=== PATIENT | female | born 1940 | race Caucasian/White ===

== ENCOUNTER 2017-10-05 19:11 | Inpatient (IN) ==
[2017-10-05] MEDS ORDERED: Naloxone 0.4 MG/ML INJ IVP PRN (23:37)
[2017-10-05] MEDS ORDERED: Ipratropium/Albuterol Neb 3 ML IH PRN (23:42)
[2017-10-05] MEDS ORDERED: predniSONE 20 MG TABLET PO SCH (23:45)
[2017-10-06] MEDS: Acetaminophen 325 MG TABLET PO PRN (00:29)
[2017-10-06] MEDS: Ipratropium/Albuterol Neb 3 ML IH SCH ×4 (03:27→21:14)
--- NOTE | 2017-10-06 03:30 | Internal Med History&Physical ---
Date of Encounter: 10/05/17 Time of Encounter: 22:00 Assessment and Plan (1) HTN (hypertension) Current visit: Yes Status: Acute continue home medications after meds verification. Now BP is not high. Qualifiers: Hypertension type: essential hypertension Qualified Code(s): I10 - Essential (primary) hypertension (2) Acute exacerbation of chronic obstructive airways disease Current visit: No Status: Acute Pt has wheezes b/l, increased SOB, consider COPD exacerbation. - Place pt on Abx, steroid and bronchodilators - Oxygen supportive treatment. - Closely monitor pt. - Bipap if necessary. (3) Pneumonia Current visit: No Status: Acute Pt's CXR shows possible pneumonia. Pt has leukocytosis and SOB. Pt has sputum culture positive for MRSA previously (about 1 year ago). - Will cover pt with vanco for MRSA and levaquin for strep pneumoccocos and atypical. - F/U blood and sputum culture. Qualifiers: Pneumonia type: due to Pneumococcus Laterality: right Lung location: unspecified part of lung Qualified Code(s): J13 - Pneumonia due to Streptococcus pneumoniae (4) DVT prophylaxis Current visit: No Status: Acute heparin [place] Internal Medicine - H&P: HPI Chief complaint: SOB Admitted From: Home Plans for Post Hospital Care: Home History of present illness: Ms. Kurtz is a 76 year old female with Hx of COPD and HTN sent to [facility] by friend for increased SOB. Pt was diagnosed Flu on 09/26/17 and just finished 5 day course of tamiflu. She was found SOB and desaturation. Needs more Oxygen. Pt denies fever but feels chill. She has no cough. Pt denies chest pain, abd pain, nausea or vomiting. Pt has no diarrhea or urination symptoms. Pt denies recent hospitalization. In ER, CXR shows pneumonia. Pt is admitted for pneumonia and COPD exacerbation. Past Med Surg Social Fam HX - Past Medical History Medical history: asthma, COPD, dementia, GERD, hyperlipidemia, hypertension, TIA Psychiatric history: no psych history - Past Surgical History Surgical History: knee replacement - Social History Smoking Status: Former smoker Smokeless Tobacco Status: No Alcohol use: none Drug use: none - Family History Father Living Status: Hx Family Cardiac Disorders: Yes (enlarged heart) Mother Living Status: Internal Medicine - H&P: Meds Aspirin [Adult Low Dose Aspirin EC] 81 mg PO DAILY 01/07/16 [History] Potassium Chloride [K-Tab ER] 20 meq PO BID 01/07/16 [History] Pravastatin Sodium 10 mg PO DAILY 01/07/16 [History] Gabapentin [Neurontin] 300 mg PO BID 08/10/16 [History] Ranitidine HCl [Zantac] 150 mg PO BID 08/10/16 [History] Escitalopram [Lexapro] 20 mg PO DAILY 07/27/17 [History] Loratadine [Allergy Relief] 10 mg PO DAILY 07/27/17 [History] Losartan Potassium [Cozaar] 25 mg PO DAILY 07/27/17 [History] Omeprazole [PriLOSEC] 20 mg PO DAILY 07/27/17 [History] Quetiapine Fumarate [Seroquel] 50 mg PO BID 07/27/17 [History] Furosemide [Lasix] 40 mg PO HS 08/02/17 [History] Furosemide [Lasix] 80 mg PO 0900 08/02/17 [History] Gabapentin [Neurontin] 600 mg PO HS 08/02/17 [History] Ipratropium/Albuterol Sulfate [Combivent Respimat Inhal [place]] 4 gm IH QID PRN 08/02/17 [History] Metoprolol [Lopressor] 12.5 mg PO BID 08/02/17 [History] traZODone [TraZODone] 100 mg PO HS 08/02/17 [History] Buspirone HCl [Buspar] 15 mg PO BID 10/05/17 [History] Cholecalciferol (Vitamin D3) [Vitamin D] 50,000 unit PO QWEEK 10/05/17 [History] Cyanocobalamin (Vitamin B-12) [Vitamin B-12] 1,000 mcg PO DAILY 10/05/17 [ History] Doxycycline 100 mg PO BID 10/05/17 [History] Fluticasone Propionate [Flovent Diskus] 50 mcg IH DAILY 10/05/17 [History] Fluticasone/Vilanterol [Breo Ellipta 100-25 Mcg INH] 1 each IH DAILY 10/05/17 [ History] Ipratropium/Albuterol Neb [Duoneb] 3 ml IH Q6HR 10/05/17 [History] Melatonin/Pyridoxine HCl (B6) [Melatonin 3 mg Tablet] 1 each PO HS 10/05/17 [ History] Memantine HCl [Namenda Xr] 14 mg PO DAILY 10/05/17 [History] PrednisoLONE [Millipred] 10 mg PO DAILY 10/05/17 [History] 3 Allergy/AdvReac Type Severity Reaction Status Date / Time Banana Allergy See Verified 08/02/17 12:24 Comments epinephrine [From Adrenalin] Allergy Swelling Verified 08/02/17 12:24 of Lip/Tongue/Throat grass pollen Allergy See Verified 08/02/17 12:24 Comments Penicillins Allergy Swelling Verified 08/02/17 12:24 of Lip/Tongue/Throat All Systems PM: A 10-system review of systems was performed and is negative for pertinent findings except as documented above in the HPI. - Constitutional Vitals: Temp Pulse Resp BP Pulse Ox 99.3 F 97 21 105/69 92 10/05/17 22:10 10/05/17 22:10 10/05/17 22:10 10/05/17 22:10 10/06/17 01:10 General appearance: Present: A&O X 3, morbidly obese, no acute distress, answers questions appropriately - Head Head exam: Present: atraumatic, normocephalic - Eye Eye exam: Present: PERRL, conjuntiva pink, sclera anicteric Pupils: Present: PERRL - Neck Neck exam general surgery: Present: supple, trachea midline. Absent: lymphadenopathy - Respiratory Respiratory exam: Present: CTAB. Absent: accessory muscle use, rales, rhonchi, wheezes - Cardiovascular Cardiovascular exam: Present: RRR, +S1, +S2. Absent: diastolic murmur, gallop, rubs, systolic murmur - GI/Abdominal GI/Abdominal exam: Present: normal bowel sounds, soft, no peritoneal signs. Absent: distended, tenderness - Extremities Exam Extremities exam: Present: warm, radial pulses palpable and symmetrical. Absent : calf tenderness, cyanotic, pedal edema - Neurological Exam Neurological exam: Present: CN II-XII intact, oriented X3, no focal deficits. Absent: pronater drift, facial droop, speech deficit - Skin Skin exam: Present: dry, intact
[2017-10-06] MEDS ORDERED: Vancomycin 1,750 MG in D5% in Water 500 ML IVPB SCH (04:00)
[2017-10-06] MEDS: *HR* Heparin 5,000 UNIT/ML VIAL SQ SCH ×2 (05:20→17:12)
[2017-10-06] MEDS ORDERED: Haloperidol Lactate 5 MG/ML VIAL IVP ONE (06:09)
[2017-10-06] MEDS: Ondansetron 4 MG/2 ML VIAL IVP PRN (06:19)
[2017-10-06] MEDS ORDERED: Saline Nasal Spray 44 ML BOTTLE NS PRN (06:23)
[2017-10-06] MEDS: Fluticasone Propionate Nasal 50 MCG/SPRAY BOTTLE NS SCH (06:39)
[2017-10-06 08:40] LABS: BUN/Creatinine Ratio 15 (6-26); Blood Urea Nitrogen 10 mg/dL (8-23); Calcium 8.2 mg/dL (8.6-10.3); Carbon Dioxide 40 mEq/L (23-29); Chloride 95 mEq/L (98-107); Glucose 163 mg/dL (70-105); Magnesium 1.9 mg/dL (1.6-2.6); Osmolality,Calculated 291 (280-300); Potassium 3.7 mEq/L (3.5-5.1); Sodium 139 mEq/L (136-145); eGFR For African Americans > 60 (> 60); eGFR For Non-African Americans > 60 (> 60)
[2017-10-06 08:42] LABS: Basophils % 0.2 %; Eosinophils % 0.1 %; Hematocrit 35.6 % (35.3-44.9); Hemoglobin 10.6 g/dL (11.5-15.4); Immature Granulocytes % 0.9 % (0-4); Lymphocytes # 0.5 K/mcL (0.6-4.6); Lymphocytes % 4.2 %; Mean Corpuscular HGB Conc 29.8 g/dL (31.6-35.5); Mean Corpuscular Hemoglobin 27.8 pg (28.0-33.3); Mean Corpuscular Volume 93.4 fL (83.0-100.0); Mean Platelet Volume 9.7 fL (9.4-12.4); Monocytes # 0.3 K/mcL (0.0-1.3); Monocytes % 2.8 %; Neutrophils # 10.8 K/mcL (1.6-8.9); Platelet Count 264 K/mcL (140-400); Red Blood Count 3.81 M/mcL (3.82-4.97); Red Cell Distribution Width 14.1 % (11.5-14.5); Segmented Neutrophils % 91.8 %
[2017-10-06] MEDS: Levofloxacin 750 MG/150 ML 750 MG/150 ML BAG IVPB SCH (09:20)
[2017-10-06] MEDS: predniSONE 20 MG TABLET PO SCH (09:20)
[2017-10-06 10:46] LABS: ABG Base Excess 11 mEq/L (-2 to 3); ABG HCO3 39 mEq/L (21-27); ABG Oxygen Saturation 97 % (95-98); ABG PCO2 69 mmHg (35-45); ABG PH 7.36 pH Units (7.32-7.45); ABG PO2 96 mmHg (85-104); ABG TCO2 42 mEq/L (20-26)
--- NOTE | 2017-10-06 15:59 | Internal Med Progress Note ---
Date of Encounter: 10/06/17 Time of Encounter: 15:57 - Assessment and plan (1) Acute and chronic respiratory failure with hypoxia Current Visit: No Status: Acute Assessment and plan: Patient presented to [facility] ED from senior care for dyspnea and confusion. Several days ago she was at the senior care and she finished Tamiflu for influenza, positive for Flu B. She has also been having some problems with cough and low oxygen. Patient's that some underlying dementia and confusion but apparently the confusion is getting worse according to the nursing staff she is not complaining of any pain. Chest x-ray in [place] showed right retrocardiac opacity, in this setting likely PNA. Has COPD exacerbation as well. Not likely heart failure, patient BNP 80s. WBC elevated at 15k. CTA chest done here negative for PE. CTA did show dbilateral lower lobe airspace consolidation, likely reflecting miltifocal pneumonia or aspiration. Also showed consolidation of RML, likely additional pneumonia or chronic right middle lobe collapse. Has MRSA in sputum with pneumonia in the past. She refused Bipap this AM. ABG showed normalized pH (was alkolotic in [place]), but CO2 is now 69. She is likely retains CO2 at baseline as her HCO3 is 39 on ABG. Her son notes that at senior care she is on 2-4 L o2 and saturates 90-92% . - Discussed with the POA (son) and the patient about her goals of care. She has refused Bipap today when she clinically warranted it. She is unsure if she would like intubation/CPR in case of respiratory failure. Her son states she has dementia and when she is in illness like this she becomes more confused as she is at this moment. He believes she would be okay with bipap. We discussed that this will need to be addressed in case patient does go back into acute respiratory failure like she did this morning. Currently she is in no acute distress. - Currently full code, patient and POA are looking into if she is okay with intubations or not, she is currently refusing bipap therapy. - Continue Vancomycin, Levaquin. Await urine antigen studies, procalcitonin, sputum cultures. - Duonebs and Prednisone daily - Speech evaluation, evaluate for possible aspiration. - Titrate O2 sats to 90-92% O2. (2) Pneumonia Current Visit: No Status: Acute Assessment and plan: Has history of MRSA pneumonia which was isolated in sputum culture at that time. Chest x-ray Qualifiers: Pneumonia type: due to Pneumococcus Laterality: right Lung location: unspecified part of lung Qualified Code(s): J13 - Pneumonia due to Streptococcus pneumoniae (3) Acute exacerbation of chronic obstructive airways disease Current Visit: No Status: Acute (4) Dementia Current Visit: Yes Status: Acute Assessment and plan: As reported by her son, and does appear confused at baseline. She is unsure why she is admitted even though she has episodes of respiratory distress. GLORIA is son and medical decision making has been taking place with him on her goals of care. Qualifiers: Dementia type: unspecified type Dementia behavioral disturbance: without behavioral disturbance Qualified Code(s): F03.90 - Unspecified dementia without behavioral disturbance (5) Heart failure with preserved left ventricular function (HFpEF) Current Visit: Yes Status: Acute Assessment and plan: Not in acute exacerbation (6) COPD (chronic obstructive pulmonary disease) with emphysema Current Visit: No Status: Acute Qualifiers: Emphysema type: unilateral Qualified Code(s): J43.0 - Unilateral pulmonary emphysema [MacLeod's syndrome] (7) HTN (hypertension) Current Visit: Yes Status: Acute Qualifiers: Hypertension type: essential hypertension Qualified Code(s): I10 - Essential (primary) hypertension - Subjective Interval history: Patient admitted overnight transfer from [facility] ED for acute on chonric respiratory failure. She's on 2-4L O2 at senior care. She has history of dementia and patient was confused this morning. She had episodes of dyspnea requiring oxygen to go to 7L NC. She was still labored in breathing. Eventually was able to wean oxygen to 4 L which she can be at senior care at times. She is currently feeling better after re-evaluation at 14:00. - Constitutional Vitals: Temp Pulse Resp BP Pulse Ox 98.6 F 94 20 128/81 88 10/06/17 11:02 10/06/17 11:02 10/06/17 11:02 10/06/17 11:02 10/06/17 11:02 General appearance: Present: A&O X 3, morbidly obese, no acute distress, answers questions appropriately Exam: - Head Head exam: Present: atraumatic, normocephalic - Eye Eye exam: Present: PERRL, conjuntiva pink, sclera anicteric Pupils: Present: PERRL - Neck Neck exam general surgery: Present: supple, trachea midline. Absent: lymphadenopathy - Respiratory Respiratory exam: Present: CTAB. Absent: Note: Initially patient had respiratory distress with labored breathing. Reassessment throughout the AM showed patient with less distress. - Cardiovascular Cardiovascular exam: Present: RRR, +S1, +S2. Absent: diastolic murmur, gallop, rubs, systolic murmur - GI/Abdominal GI/Abdominal exam: Present: normal bowel sounds, soft, no peritoneal signs. Absent: distended, tenderness - Extremities Exam Extremities exam: Present: warm, radial pulses palpable and symmetrical. Absent : calf tenderness, cyanotic, pedal edema - Neurological Exam Neurological exam: Present: CN II-XII intact, oriented X3, no focal deficits. Absent: pronater drift, facial droop, speech deficit - Skin Skin exam: Present: dry, intact Internal Medicine: Result - Labs CBC & Chem 7: 10/06/17 07:17 10/06/17 07:17 Labs: Short CBC 10/06/17 Range/Units 07:17 WBC 11.8 H (4.3-11.1) K/mcL Hgb 10.6 L D (11.5-15.4) g/dL Hct 35.6 (35.3-44.9) % Plt Count 264 (140-400) K/mcL Neutrophils # 10.8 H (1.6-8.9) K/mcL BMP 10/06/17 07:17 Sodium 139 Potassium 3.7 Chloride 95 L Carbon Dioxide 40 H* BUN 10 Creatinine 0.68 Glucose 163 H Calcium 8.2 L - ABG Interpretation ABG results: ABG ABG pH 7.36 pH Units (7.32-7.45) 10/06/17 10:42 ABG pCO2 69 mmHg (35-45) H 10/06/17 10:42 ABG pO2 96 mmHg (85-104) 10/06/17 10:42 ABG O2 Saturation 97 % (95-98) 10/06/17 10:42 - Impressions Impressions Chest CTA 10/06/17 08:45 IMPRESSION: 1. No CT evidence of a pulmonary embolism. 2. Atherosclerotic disease of the thoracic aorta, without acute abnormality. 3. Bilateral lower lobe airspace consolidation, most likely reflecting either multifocal pneumonia or aspiration. 4. Mild partial consolidation right middle lobe, likely representing additional pneumonia or chronic partial right middle lobe collapse. 5. Findings suggestive of chronic pulmonary arterial hypertension. D/ / 10/06/2017 09:24:53 Zackery Paul MD / corona Interpreting Provider: Zackery Paul MD Consult Discharge Plan - Plan Referrals: Colleen Smith, CANDICE [Primary Care Provider] -
[2017-10-07] MEDS ORDERED: Haloperidol Lactate 5 MG/ML VIAL IM ONE (00:29)
[2017-10-07] MEDS: Acetaminophen 325 MG TABLET PO PRN ×3 (00:33→22:37)
[2017-10-07] MEDS: Vancomycin 1,750 MG in D5% in Water 500 ML IVPB SCH (04:00)
[2017-10-07] MEDS: Ipratropium/Albuterol Neb 3 ML IH SCH ×4 (04:14→21:28)
[2017-10-07] MEDS: *HR* Heparin 5,000 UNIT/ML VIAL SQ SCH ×2 (05:14→16:25)
[2017-10-07 06:38] LABS: Basophils % 0.3 %; Eosinophils % 0.3 %; Hematocrit 35.8 % (35.3-44.9); Immature Granulocytes % 1.4 % (0-4); Lymphocytes # 1.2 K/mcL (0.6-4.6); Lymphocytes % 10.3 %; Mean Corpuscular HGB Conc 30.7 g/dL (31.6-35.5); Mean Corpuscular Hemoglobin 28.4 pg (28.0-33.3); Mean Corpuscular Volume 92.5 fL (83.0-100.0); Mean Platelet Volume 9.4 fL (9.4-12.4); Monocytes # 1.1 K/mcL (0.0-1.3); Monocytes % 9.7 %; Neutrophils # 9.1 K/mcL (1.6-8.9); Platelet Count 313 K/mcL (140-400); Red Blood Count 3.87 M/mcL (3.82-4.97); Red Cell Distribution Width 13.9 % (11.5-14.5)
[2017-10-07 08:05] LABS: BUN/Creatinine Ratio 16 (6-26); Blood Urea Nitrogen 12 mg/dL (8-23); Carbon Dioxide 38 mEq/L (23-29); Chloride 95 mEq/L (98-107); Glucose 159 mg/dL (70-105); Osmolality,Calculated 293 (280-300); Potassium 3.2 mEq/L (3.5-5.1); Sodium 140 mEq/L (136-145); eGFR For African Americans > 60 (> 60); eGFR For Non-African Americans > 60 (> 60)
[2017-10-07] MEDS: Levofloxacin 750 MG/150 ML 750 MG/150 ML BAG IVPB SCH (08:27)
[2017-10-07] MEDS: predniSONE 20 MG TABLET PO SCH (08:27)
[2017-10-07] MEDS: Fluticasone Propionate Nasal 50 MCG/SPRAY BOTTLE NS SCH (08:38)
[2017-10-07] MEDS ORDERED: ALPRAZolam 0.25 MG TABLET PO ONE (10:47)
--- NOTE | 2017-10-07 15:37 | Internal Med Progress Note ---
Date of Encounter: 10/07/17 Time of Encounter: 15:35 - Assessment and plan (1) Acute and chronic respiratory failure with hypoxia Current Visit: No Status: Acute Assessment and plan: Patient presented to [facility] ED from long-term for dyspnea and confusion. Several days ago she was at the long-term and she finished Tamiflu for influenza, positive for Flu B. She has also been having some problems with cough and low oxygen. Patient's that some underlying dementia and confusion but apparently the confusion is getting worse according to the nursing staff she is not complaining of any pain. Chest x-ray in [facility] showed right retrocardiac opacity, in this setting likely PNA. Has COPD exacerbation as well. Not likely heart failure, patient BNP 80s. WBC elevated at 15k. CTA chest done here negative for PE. CTA did show bilateral lower lobe airspace consolidation, likely reflecting miltifocal pneumonia or aspiration. Swallow eval 10/07; no signs of aspiration. Has MRSA in sputum with pneumonia in the past. She refused Bipap this AM. ABG showed normalized pH (was alkolotic in [facility]), but CO2 is now 69. She is likely retains CO2 at baseline as her HCO3 is 39 on ABG. Her son notes that at long-term she is on 2-4 L o2 and saturates 90-92%. - Discussed with the POA (son) and the patient about her goals of care. She has refused Bipap today when she clinically warranted it. She is unsure if she would like intubation/CPR in case of respiratory failure. Her son states she has dementia and when she is in illness like this she becomes more confused as she is at this moment. He believes she would be okay with bipap, however patient continues to decline use of bipap. - Currently full code, patient and POA are looking into if she is okay with intubations or not, she is currently refusing bipap therapy. - Continue Vancomycin, Levaquin. Await urine antigen studies, procalcitonin, sputum cultures. - Duonebs and Prednisone daily - Titrate O2 sats to 90-92% O2. (2) Pneumonia Current Visit: No Status: Acute Assessment and plan: Seen on CTA of chest, showing likely multifocal pneumonia. Has history of MRSA pneumonia which was isolated in sputum culture at that time. Qualifiers: Pneumonia type: due to Pneumococcus Laterality: right Lung location: unspecified part of lung Qualified Code(s): J13 - Pneumonia due to Streptococcus pneumoniae (3) Acute exacerbation of chronic obstructive airways disease Current Visit: No Status: Acute (4) Dementia Current Visit: Yes Status: Acute Assessment and plan: As reported by her son, and does appear confused at baseline. She is unsure why she is admitted even though she has episodes of respiratory distress. GLORIA is son and medical decision making has been taking place with him on her goals of care. Qualifiers: Dementia type: unspecified type Dementia behavioral disturbance: without behavioral disturbance Qualified Code(s): F03.90 - Unspecified dementia without behavioral disturbance (5) Heart failure with preserved left ventricular function (HFpEF) Current Visit: Yes Status: Acute Assessment and plan: Not in acute exacerbation (6) COPD (chronic obstructive pulmonary disease) with emphysema Current Visit: No Status: Acute Qualifiers: Emphysema type: unilateral Qualified Code(s): J43.0 - Unilateral pulmonary emphysema [MacLeod's syndrome] (7) HTN (hypertension) Current Visit: Yes Status: Acute Qualifiers: Hypertension type: essential hypertension Qualified Code(s): I10 - Essential (primary) hypertension - Subjective Interval history: Patient admitted as transfer from [facility] ED for acute on chonric respiratory failure. She's on 2-4L O2 at long-term. She has history of dementia and patient was confused this morning. She had episodes of dyspnea requiring oxygen to go to 7L NC. She was still labored in breathing. Eventually was able to wean oxygen to 4 L which she can be at long-term at times. 10/07 patient still requiring 7 L O2, gets dyspneic but cannot remember exactly why she is here. She states she wants to go home. When patient takes her O2 off she instantly desaturates to 80s. - Constitutional Vitals: Temp Pulse Resp BP Pulse Ox 98.7 F 95 18 143/70 90 10/07/17 12:00 10/07/17 13:01 10/07/17 13:01 10/07/17 13:01 10/07/17 13:01 General appearance: Present: A&O X 3, morbidly obese, no acute distress, answers questions appropriately Exam: - Head Head exam: Present: atraumatic, normocephalic - Eye Eye exam: Present: PERRL, conjuntiva pink, sclera anicteric Pupils: Present: PERRL - Neck Neck exam general surgery: Present: supple, trachea midline. Absent: lymphadenopathy - Respiratory Respiratory exam: Present: CTAB. Absent: Note: Air exchange is better on exam today. No w/r/r - Cardiovascular Cardiovascular exam: Present: RRR, +S1, +S2. Absent: diastolic murmur, gallop, rubs, systolic murmur - GI/Abdominal GI/Abdominal exam: Present: normal bowel sounds, soft, no peritoneal signs. Absent: distended, tenderness - Extremities Exam Extremities exam: Present: warm, radial pulses palpable and symmetrical. Absent : calf tenderness, cyanotic, pedal edema - Neurological Exam Neurological exam: Present: CN II-XII intact, oriented X3, no focal deficits. Absent: pronater drift, facial droop, speech deficit - Skin Skin exam: Present: dry, intact Internal Medicine: Result - Labs CBC & Chem 7: 10/07/17 05:40 10/07/17 05:40 Labs: Short CBC 10/07/17 Range/Units 05:40 WBC 11.6 H (4.3-11.1) K/mcL Hgb 11.0 L (11.5-15.4) g/dL Hct 35.8 (35.3-44.9) % Plt Count 313 (140-400) K/mcL Neutrophils # 9.1 H (1.6-8.9) K/mcL BMP 10/07/17 05:40 Sodium 140 Potassium 3.2 L Chloride 95 L Carbon Dioxide 38 H BUN 12 Creatinine 0.74 Glucose 159 H Calcium 9.0 - ABG Interpretation ABG results: ABG ABG pH 7.36 pH Units (7.32-7.45) 10/06/17 10:42 ABG pCO2 69 mmHg (35-45) H 10/06/17 10:42 ABG pO2 96 mmHg (85-104) 10/06/17 10:42 ABG O2 Saturation 97 % (95-98) 10/06/17 10:42 - Impressions Impressions Chest CTA 10/06/17 08:45 IMPRESSION: 1. No CT evidence of a pulmonary embolism. 2. Atherosclerotic disease of the thoracic aorta, without acute abnormality. 3. Bilateral lower lobe airspace consolidation, most likely reflecting either multifocal pneumonia or aspiration. 4. Mild partial consolidation of the right middle lobe, likely representing additional pneumonia or chronic partial right middle lobe collapse. 5. Findings suggestive of chronic pulmonary arterial hypertension. D/ / 10/06/2017 09:24:53 Zackery Paul MD / corona Interpreting Provider: Zackery Paul MD Consult Discharge Plan - Plan Referrals: Colleen Smith, MACHINE SPECIALIST [Primary Care Provider] -
[2017-10-07] MEDS ORDERED: Potassium Chloride Elixir 20 MEQ/15 ML UDC PO ONE (15:38)
[2017-10-07] MEDS: traZODone 50 MG TABLET PO SCH (22:38)
[2017-10-08 03:57] LABS: Basophils % 0.2 %; Eosinophils % 0.1 %; Hematocrit 35.6 % (35.3-44.9); Hemoglobin 10.8 g/dL (11.5-15.4); Immature Platelets 2.9 % (1.1-6.1); Lymphocytes # 1.1 K/mcL (0.6-4.6); Lymphocytes % 11.4 %; Mean Corpuscular HGB Conc 30.3 g/dL (31.6-35.5); Mean Corpuscular Hemoglobin 27.8 pg (28.0-33.3); Mean Corpuscular Volume 91.8 fL (83.0-100.0); Mean Platelet Volume 9.1 fL (9.4-12.4); Monocytes # 1.1 K/mcL (0.0-1.3); Monocytes % 10.9 %; Neutrophils # 7.6 K/mcL (1.6-8.9); Platelet Count 390 K/mcL (140-400); Red Blood Count 3.88 M/mcL (3.82-4.97); Red Cell Distribution Width 13.9 % (11.5-14.5); Segmented Neutrophils % 76.4 %
[2017-10-08] MEDS: Ipratropium/Albuterol Neb 3 ML IH SCH ×4 (04:08→23:14)
[2017-10-08 04:12] LABS: BUN/Creatinine Ratio 15 (6-26); Blood Urea Nitrogen 11 mg/dL (8-23); Calcium 9.1 mg/dL (8.6-10.3); Carbon Dioxide 36 mEq/L (23-29); Chloride 97 mEq/L (98-107); Glucose 108 mg/dL (70-105); Osmolality,Calculated 290 (280-300); Potassium 3.3 mEq/L (3.5-5.1); Sodium 140 mEq/L (136-145); eGFR For African Americans > 60 (> 60); eGFR For Non-African Americans > 60 (> 60)
[2017-10-08] MEDS: *HR* Heparin 5,000 UNIT/ML VIAL SQ SCH ×2 (05:47→17:49)
[2017-10-08] MEDS: Acetaminophen 325 MG TABLET PO PRN (05:47)
[2017-10-08] MEDS: predniSONE 20 MG TABLET PO SCH (09:33)
[2017-10-08] MEDS: Fluticasone Propionate Nasal 50 MCG/SPRAY BOTTLE NS SCH (09:33)
[2017-10-08] MEDS: traZODone 50 MG TABLET PO SCH ×2 (09:33→20:03)
[2017-10-08] MEDS: Levofloxacin 750 MG/150 ML 750 MG/150 ML BAG IVPB SCH (09:33)
--- NOTE | 2017-10-08 15:31 | Internal Med Progress Note ---
Date of Encounter: 10/08/17 Time of Encounter: 15:29 - Assessment and plan (1) Acute and chronic respiratory failure with hypoxia Current Visit: No Status: Acute Assessment and plan: Patient presented to [place] ED from senior living for dyspnea and confusion. Several days ago she was at the senior living and she finished Tamiflu for influenza, positive for Flu B. She has also been having some problems with cough and low oxygen. Patient's that some underlying dementia and confusion but apparently the confusion is getting worse according to the nursing staff she is not complaining of any pain. Chest x-ray in [place] showed right retrocardiac opacity, in this setting likely PNA. Has COPD exacerbation as well. Not likely heart failure, patient BNP 80s. WBC elevated at 15k. CTA chest done here negative for PE. CTA did show bilateral lower lobe airspace consolidation, likely reflecting miltifocal pneumonia or aspiration. Swallow eval 10/07; no signs of aspiration. Has MRSA in sputum with pneumonia in the past. Her son notes that at senior living she is on 2-4 L o2 and saturates 90-92 %. - Discussed with the POA (son) and the patient about her goals of care. She has refused Bipap today when she clinically warranted it. She is unsure if she would like intubation/CPR in case of respiratory failure. Her son states she has dementia and when she is in illness like this she becomes more confused as she is at this moment. He believes she would be okay with bipap, however patient continues to decline use of bipap. - Currently full code, patient and POA are looking into if she is okay with intubations or not, she is currently refusing bipap therapy. - Continue Vancomycin, Levaquin. Await urine antigen studies, procalcitonin, sputum cultures. - Duonebs and Prednisone daily - Titrate O2 sats to 90-92% O2. Switch to nasal cannula to improve patient compliance. (2) Pneumonia Current Visit: No Status: Acute Assessment and plan: Seen on CTA of chest, showing likely multifocal pneumonia. Has history of MRSA pneumonia which was isolated in sputum culture at that time. Continue to monitor patient as she is easily desaturating and goes into dyspneic episodes. Overall she is showing some improvement but she is a high risk patient based on multiple comorbidities. Qualifiers: Pneumonia type: due to Pneumococcus Laterality: right Lung location: unspecified part of lung Qualified Code(s): J13 - Pneumonia due to Streptococcus pneumoniae (3) Acute exacerbation of chronic obstructive airways disease Current Visit: No Status: Acute (4) Dementia Current Visit: Yes Status: Acute Assessment and plan: As reported by her son, and does appear confused at baseline. She is unsure why she is admitted even though she has episodes of respiratory distress. POSera is son and medical decision making has been taking place with him on her goals of care. Qualifiers: Dementia type: unspecified type Dementia behavioral disturbance: without behavioral disturbance Qualified Code(s): F03.90 - Unspecified dementia without behavioral disturbance (5) Heart failure with preserved left ventricular function (HFpEF) Current Visit: Yes Status: Acute Assessment and plan: Not in acute exacerbation (6) COPD (chronic obstructive pulmonary disease) with emphysema Current Visit: No Status: Acute Qualifiers: Emphysema type: unilateral Qualified Code(s): J43.0 - Unilateral pulmonary emphysema [MacLeod's syndrome] (7) HTN (hypertension) Current Visit: Yes Status: Acute Qualifiers: Hypertension type: essential hypertension Qualified Code(s): I10 - Essential (primary) hypertension - Subjective Interval history: Patient admitted as transfer from [place] ED for acute on chonric respiratory failure. She's on 2-4L O2 at senior living. She has history of dementia and patient was confused this morning. She had episodes of dyspnea requiring oxygen to go to 7L NC. She was still labored in breathing. Eventually was able to wean oxygen to 4 L which she can be at senior living at times. 10/07 patient still requiring 7 L O2 (Mask), gets dyspneic but cannot remember exactly why she is here. She states she wants to go home. When patient takes her O2 off she instantly desaturates to 80s. 10/08: Documented on 7 L mask. However nursing reports that she was on 4L earlier. I observed patient eating lunch and she is desaturating to 83%with mask partially off she currently denies CP,SOB, fevers.chills. - Constitutional Vitals: Temp Pulse Resp BP Pulse Ox 98.7 F 96 16 147/87 93 10/08/17 14:21 10/08/17 14:21 10/08/17 14:21 10/08/17 14:21 10/08/17 14:21 General appearance: Present: A&O X 3, morbidly obese, no acute distress, answers questions appropriately Exam: - Head Head exam: Present: atraumatic, normocephalic - Eye Eye exam: Present: PERRL, conjuntiva pink, sclera anicteric Pupils: Present: PERRL - Neck Neck exam general surgery: Present: supple, trachea midline. Absent: lymphadenopathy - Respiratory Respiratory exam: Present: CTAB. Absent: Note: Air exchange is better on exam today. No w/r/r - Cardiovascular Cardiovascular exam: Present: RRR, +S1, +S2. Absent: diastolic murmur, gallop, rubs, systolic murmur - GI/Abdominal GI/Abdominal exam: Present: normal bowel sounds, soft, no peritoneal signs. Absent: distended, tenderness - Extremities Exam Extremities exam: Present: warm, radial pulses palpable and symmetrical. Absent : calf tenderness, cyanotic, pedal edema - Neurological Exam Neurological exam: Present: CN II-XII intact, oriented X3, no focal deficits. Absent: pronater drift, facial droop, speech deficit - Skin Skin exam: Present: dry, intact Internal Medicine: Result - Labs CBC & Chem 7: 10/08/17 03:35 10/08/17 03:35 Labs: Short CBC 10/08/17 Range/Units 03:35 WBC 9.9 (4.3-11.1) K/mcL Hgb 10.8 L (11.5-15.4) g/dL Hct 35.6 (35.3-44.9) % Plt Count 390 (140-400) K/mcL Neutrophils # 7.6 (1.6-8.9) K/mcL BMP 10/08/17 03:35 Sodium 140 Potassium 3.3 L Chloride 97 L Carbon Dioxide 36 H BUN 11 Creatinine 0.72 Glucose 108 H Calcium 9.1 - ABG Interpretation ABG results: ABG ABG pH 7.36 pH Units (7.32-7.45) 10/06/17 10:42 ABG pCO2 69 mmHg (35-45) H 10/06/17 10:42 ABG pO2 96 mmHg (85-104) 10/06/17 10:42 ABG O2 Saturation 97 % (95-98) 10/06/17 10:42 Consult Discharge Plan - Plan Referrals: Lower,Colleen L, AUTOMATIC RIVETING MACHINE OPERATOR [Primary Care Provider] -
[2017-10-08] MEDS ORDERED: Vancomycin 1,500 MG in D5% in Water 250 ML IVPB SCH (17:00)
[2017-10-08] MEDS: *HR* HYDROcodone/Acet 5/325 mg TABLET PO PRN (19:01)
[2017-10-09] MEDS: Haloperidol Lactate 5 MG/ML VIAL IVP PRN ×2 (00:33→22:50)
[2017-10-09] MEDS: Ipratropium/Albuterol Neb 3 ML IH SCH ×4 (05:02→22:56)
[2017-10-09] MEDS: Vancomycin 2,000 MG in D5% in Water 500 ML IVPB SCH (05:31)
[2017-10-09 06:05] LABS: Basophils % 0.3 %; Eosinophils % 0.4 %; Hematocrit 35.9 % (35.3-44.9); Hemoglobin 10.9 g/dL (11.5-15.4); Immature Granulocytes % 1.4 % (0-4); Lymphocytes # 1.4 K/mcL (0.6-4.6); Mean Corpuscular HGB Conc 30.4 g/dL (31.6-35.5); Mean Corpuscular Hemoglobin 27.7 pg (28.0-33.3); Mean Corpuscular Volume 91.3 fL (83.0-100.0); Monocytes # 1.2 K/mcL (0.0-1.3); Monocytes % 11.8 %; Neutrophils # 7.1 K/mcL (1.6-8.9); Platelet Count 309 K/mcL (140-400); Red Blood Count 3.93 M/mcL (3.82-4.97); Segmented Neutrophils % 72.1 %
[2017-10-09 06:17] LABS: BUN/Creatinine Ratio 18 (6-26); Blood Urea Nitrogen 13 mg/dL (8-23); Calcium 8.8 mg/dL (8.6-10.3); Carbon Dioxide 36 mEq/L (23-29); Chloride 99 mEq/L (98-107); Glucose 110 mg/dL (70-105); Osmolality,Calculated 293 (280-300); Potassium 3.4 mEq/L (3.5-5.1); Sodium 141 mEq/L (136-145); eGFR For African Americans > 60 (> 60); eGFR For Non-African Americans > 60 (> 60)
[2017-10-09] MEDS: Levofloxacin 750 MG/150 ML 750 MG/150 ML BAG IVPB SCH (09:58)
[2017-10-09] MEDS: predniSONE 20 MG TABLET PO SCH (09:58)
[2017-10-09] MEDS: Fluticasone Propionate Nasal 50 MCG/SPRAY BOTTLE NS SCH (09:59)
[2017-10-09] MEDS: traZODone 50 MG TABLET PO SCH ×2 (10:01→19:56)
[2017-10-09] MEDS ORDERED: Furosemide 40 MG/4 ML VIAL IVP ONE (11:37)
[2017-10-09] MEDS: *HR* Heparin 5,000 UNIT/ML VIAL SQ SCH ×2 (12:28→17:14)
[2017-10-09] MEDS: *HR* HYDROcodone/Acet 5/325 mg TABLET PO PRN ×2 (12:32→18:55)
--- NOTE | 2017-10-09 15:55 | Internal Med Progress Note ---
Date of Encounter: 10/09/17 Time of Encounter: 15:52 - Assessment and plan (1) Acute and chronic respiratory failure with hypoxia Current Visit: No Status: Acute Assessment and plan: Patient presented to [facility] ED from care home for dyspnea and confusion. Several days ago she was at the care home and she finished Tamiflu for influenza, positive for Flu B. She has also been having some problems with cough and low oxygen. Patient's that some underlying dementia and confusion but apparently the confusion is getting worse according to the nursing staff she is not complaining of any pain. Chest x-ray in [facility] showed right retrocardiac opacity, in this setting likely PNA. Has COPD exacerbation as well. Not likely heart failure, patient BNP 80s. WBC elevated at 15k. CTA chest done here negative for PE. CTA did show bilateral lower lobe airspace consolidation, likely reflecting miltifocal pneumonia or aspiration. Swallow eval 10/07; no signs of aspiration. Has MRSA in sputum with pneumonia in the past. Her son notes that at care home she is on 2-4 L o2 and saturates 90-92 %. Discussed with the POA (son) and the patient about her goals of care. She has refused Bipap today when she clinically warranted it. She is unsure if she would like intubation/CPR in case of respiratory failure. Her son states she has dementia and when she is in illness like this she becomes more confused as she is at this moment. He believes she would be okay with bipap, however patient continues to decline use of bipap. She is not compliant with nasal cannula oxygen. Overall patient prognosis is guarded, she is not willing to use bipap at times of distress and she is slow to recover from acute on chronic respiratory failure. - Continue Vancomycin, Levaquin. Await urine antigen studies, procalcitonin, sputum cultures. - Duonebs and Prednisone daily - taper - Titrate O2 sats to 90-92% O2. (2) Pneumonia Current Visit: No Status: Acute Assessment and plan: Seen on CTA of chest, showing likely multifocal pneumonia. Has history of MRSA pneumonia which was isolated in sputum culture at that time. Continue to monitor patient as she is easily desaturating and goes into dyspneic episodes. Overall she is showing some improvement but she is a high risk patient based on multiple comorbidities. Qualifiers: Pneumonia type: due to Pneumococcus Laterality: right Lung location: unspecified part of lung Qualified Code(s): J13 - Pneumonia due to Streptococcus pneumoniae (3) Acute exacerbation of chronic obstructive airways disease Current Visit: No Status: Acute (4) Dementia Current Visit: Yes Status: Acute Assessment and plan: As reported by her son, and does appear confused at baseline. She is unsure why she is admitted even though she has episodes of respiratory distress. POA is son and medical decision making has been taking place with him on her goals of care. Qualifiers: Dementia type: unspecified type Dementia behavioral disturbance: without behavioral disturbance Qualified Code(s): F03.90 - Unspecified dementia without behavioral disturbance (5) Heart failure with preserved left ventricular function (HFpEF) Current Visit: Yes Status: Acute Assessment and plan: Not in acute exacerbation (6) COPD (chronic obstructive pulmonary disease) with emphysema Current Visit: No Status: Acute Qualifiers: Emphysema type: unilateral Qualified Code(s): J43.0 - Unilateral pulmonary emphysema [MacLeod's syndrome] (7) HTN (hypertension) Current Visit: Yes Status: Acute Qualifiers: Hypertension type: essential hypertension Qualified Code(s): I10 - Essential (primary) hypertension - Subjective Interval history: Patient admitted as transfer from [facility] ED for acute on chonric respiratory failure. She's on 2-4L O2 at care home. Pt was diagnosed Flu on 09/26/17 and just finished 5 day course of tamiflu. She was found SOB and desaturation. She has history of dementia and patient was confused on admission. She had episodes of dyspnea requiring oxygen to go to 7L NC, she usually uses 2-4 L at care home (nasal cannula). She was still labored in breathing. Eventually was able to wean oxygen to 4 L which she can be at care home at times. 10/07 patient still requiring 7 L O2 (Mask), gets dyspneic but cannot remember exactly why she is here. She states she wants to go home. When patient takes her O2 off she instantly desaturates to 80s. 10/08: Documented on 7 L mask. However nursing reports that she was on 4L earlier. I observed patient eating lunch and she is desaturating to 83%with mask partially off she currently denies CP,SOB, fevers.chills. 10/09 had dyspnea in paroxysms and only accepted O2 mask. Has some edema noted in extremities. - Constitutional Vitals: Temp Pulse Resp BP Pulse Ox 97.7 F 94 18 144/84 91 10/09/17 15:34 10/09/17 15:34 10/09/17 15:34 10/09/17 15:34 10/09/17 15:34 General appearance: Present: A&O X 1, morbidly obese, no acute distress. Absent : answers questions appropriately Exam: - Head Head exam: Present: atraumatic, normocephalic - Eye Eye exam: Present: PERRL, conjuntiva pink, sclera anicteric Pupils: Present: PERRL - Neck Neck exam general surgery: Present: supple, trachea midline. Absent: lymphadenopathy - Respiratory Respiratory exam: Present: CTAB. Absent: Note: Air exchange is better on exam today. No w/r/r - Cardiovascular Cardiovascular exam: Present: RRR, +S1, +S2. Absent: diastolic murmur, gallop, rubs, systolic murmur - GI/Abdominal GI/Abdominal exam: Present: normal bowel sounds, soft, no peritoneal signs. Absent: distended, tenderness - Extremities Exam Extremities exam: Present: warm, radial pulses palpable and symmetrical, pedal edema. Absent: calf tenderness, cyanotic - Neurological Exam Neurological exam: Present: CN II-XII intact, oriented X3, no focal deficits. Absent: pronater drift, facial droop, speech deficit - Skin Skin exam: Present: dry, intact - Extremities Exam Extremities exam: Present: pedal edema Internal Medicine: Result - Labs CBC & Chem 7: 10/09/17 05:49 10/09/17 05:49 Labs: Short CBC 10/09/17 Range/Units 05:49 WBC 9.8 (4.3-11.1) K/mcL Hgb 10.9 L (11.5-15.4) g/dL Hct 35.9 (35.3-44.9) % Plt Count 309 (140-400) K/mcL Neutrophils # 7.1 (1.6-8.9) K/mcL BMP 10/09/17 05:49 Sodium 141 Potassium 3.4 L Chloride 99 Carbon Dioxide 36 H BUN 13 Creatinine 0.73 Glucose 110 H Calcium 8.8 - ABG Interpretation ABG results: ABG ABG pH 7.36 pH Units (7.32-7.45) 10/06/17 10:42 ABG pCO2 69 mmHg (35-45) H 10/06/17 10:42 ABG pO2 96 mmHg (85-104) 10/06/17 10:42 ABG O2 Saturation 97 % (95-98) 10/06/17 10:42 Consult Discharge Plan - Plan Referrals: Colleen Smith, CANDICE [Primary Care Provider] -
[2017-10-09] MEDS: Ondansetron 4 MG/2 ML VIAL IVP PRN (19:56)
[2017-10-10] MEDS: *HR* HYDROcodone/Acet 5/325 mg TABLET PO PRN ×2 (02:02→16:32)
[2017-10-10] MEDS: Ipratropium/Albuterol Neb 3 ML IH SCH ×4 (03:38→22:26)
[2017-10-10] MEDS: *HR* Heparin 5,000 UNIT/ML VIAL SQ SCH ×2 (05:05→18:06)
[2017-10-10] MEDS: Vancomycin 2,000 MG in D5% in Water 500 ML IVPB SCH (05:06)
[2017-10-10 07:36] LABS: BUN/Creatinine Ratio 14 (6-26); Basophils % 0.3 %; Blood Urea Nitrogen 13 mg/dL (8-23); Calcium 8.7 mg/dL (8.6-10.3); Carbon Dioxide 42 mEq/L (23-29); Chloride 97 mEq/L (98-107); Eosinophils # 0.1 K/mcL (0.0-0.6); Eosinophils % 0.6 %; Glucose 115 mg/dL (70-105); Hematocrit 37.3 % (35.3-44.9); Hemoglobin 10.9 g/dL (11.5-15.4); Immature Granulocytes % 1.3 % (0-4); Lymphocytes # 1.2 K/mcL (0.6-4.6); Lymphocytes % 9.7 %; Mean Corpuscular HGB Conc 29.2 g/dL (31.6-35.5); Mean Corpuscular Hemoglobin 27.2 pg (28.0-33.3); Monocytes # 1.4 K/mcL (0.0-1.3); Monocytes % 11.1 %; Neutrophils # 9.8 K/mcL (1.6-8.9); Osmolality,Calculated 297 (280-300); Platelet Count 376 K/mcL (140-400); Potassium 3.1 mEq/L (3.5-5.1); Red Blood Count 4.01 M/mcL (3.82-4.97); Sodium 143 mEq/L (136-145); eGFR For African Americans > 60 (> 60); eGFR For Non-African Americans 59 (> 60)
[2017-10-10] MEDS: Levofloxacin 750 MG/150 ML 750 MG/150 ML BAG IVPB SCH (08:10)
[2017-10-10] MEDS ORDERED: predniSONE 20 MG TABLET PO SCH (09:00)
[2017-10-10] MEDS: traZODone 50 MG TABLET PO SCH ×2 (14:04→21:11)
[2017-10-10] MEDS: predniSONE 20 MG TABLET PO SCH (14:06)
[2017-10-10] MEDS: Fluticasone Propionate Nasal 50 MCG/SPRAY BOTTLE NS SCH (16:33)
--- NOTE | 2017-10-10 21:43 | Internal Med Progress Note ---
Date of Encounter: 10/10/17 Time of Encounter: 10:13 - Assessment and plan (1) Acute and chronic respiratory failure with hypoxia Current Visit: No Status: Acute Assessment and plan: Patient presented to [place] ED from care home for dyspnea and confusion. Several days ago she was at the care home and she finished Tamiflu for influenza, positive for Flu B. She has also been having some problems with cough and low oxygen. Patient's that some underlying dementia and confusion but apparently the confusion is getting worse according to the nursing staff she is not complaining of any pain. Chest x-ray in [place] showed right retrocardiac opacity, in this setting likely PNA. Has COPD exacerbation as well. Not likely heart failure, patient BNP 80s. WBC elevated at 15k. CTA chest done here negative for PE. CTA did show bilateral lower lobe airspace consolidation, likely reflecting miltifocal pneumonia or aspiration. Swallow eval 10/07; no signs of aspiration. Has MRSA in sputum with pneumonia in the past. Her son notes that at care home she is on 2-4 L o2 and saturates 90-92 %. Discussed with the POA (son) and the patient about her goals of care. She has refused Bipap today when she clinically warranted it. She is unsure if she would like intubation/CPR in case of respiratory failure. Her son states she has dementia and when she is in illness like this she becomes more confused as she is at this moment. He believes she would be okay with bipap, however patient continues to decline use of bipap. She is not compliant with nasal cannula oxygen. Overall patient prognosis is guarded, she is not willing to use bipap at times of distress and she is slow to recover from acute on chronic respiratory failure. Had increas in white count, possibly from respiratory distress. Steroids were being tapered, so not likely the reason for increase of white count to 13. If white count continues to increase, will change coverage. - Continue Vancomycin, Levaquin. Await urine antigen studies, procalcitonin, sputum cultures. - Duonebs and Prednisone daily - taper - Titrate O2 sats to 90-92% O2. (2) Pneumonia Current Visit: No Status: Acute Assessment and plan: Seen on CTA of chest, showing likely multifocal pneumonia. Has history of MRSA pneumonia which was isolated in sputum culture at that time. Continue to monitor patient as she is easily desaturating and goes into dyspneic episodes. Overall she is showing some improvement but she is a high risk patient based on multiple comorbidities. Qualifiers: Pneumonia type: due to Pneumococcus Laterality: right Lung location: unspecified part of lung Qualified Code(s): J13 - Pneumonia due to Streptococcus pneumoniae (3) Acute exacerbation of chronic obstructive airways disease Current Visit: No Status: Acute (4) Dementia Current Visit: Yes Status: Acute Assessment and plan: As reported by her son, and does appear confused at baseline. She is unsure why she is admitted even though she has episodes of respiratory distress. POSera is son and medical decision making has been taking place with him on her goals of care. Qualifiers: Dementia type: unspecified type Dementia behavioral disturbance: without behavioral disturbance Qualified Code(s): F03.90 - Unspecified dementia without behavioral disturbance (5) Heart failure with preserved left ventricular function (HFpEF) Current Visit: Yes Status: Acute Assessment and plan: Not in acute exacerbation (6) COPD (chronic obstructive pulmonary disease) with emphysema Current Visit: No Status: Acute Qualifiers: Emphysema type: unilateral Qualified Code(s): J43.0 - Unilateral pulmonary emphysema [MacLeod's syndrome] (7) HTN (hypertension) Current Visit: Yes Status: Acute Qualifiers: Hypertension type: essential hypertension Qualified Code(s): I10 - Essential (primary) hypertension - Subjective Interval history: Patient admitted as transfer from [facility] ED for acute on chonric respiratory failure. She's on 2-4L O2 at care home. Pt was diagnosed Flu on 09/26/17 and just finished 5 day course of tamiflu. She was found SOB and desaturation. She has history of dementia and patient was confused on admission. She had episodes of dyspnea requiring oxygen to go to 7L NC, she usually uses 2-4 L at care home (nasal cannula). She was still labored in breathing. Eventually was able to wean oxygen to 4 L which she can be at care home at times. 10/07 patient still requiring 7 L O2 (Mask), gets dyspneic but cannot remember exactly why she is here. She states she wants to go home. When patient takes her O2 off she instantly desaturates to 80s. 10/08: Documented on 7 L mask. However nursing reports that she was on 4L earlier. I observed patient eating lunch and she is desaturating to 83%with mask partially off she currently denies CP,SOB, fevers.chills. 10/09 had dyspnea in paroxysms and only accepted O2 mask. Has some edema noted in extremities. which improved with Lasix. 10/10 patient more somnolent and did agree to bipap. Respiratory distressed all night. - Constitutional Vitals: Temp Pulse Resp BP Pulse Ox 98.8 F 78 18 108/69 93 10/10/17 19:48 10/10/17 19:48 10/10/17 19:48 10/10/17 19:48 10/10/17 20:56 General appearance: Present: A&O X 1, morbidly obese. Absent: answers questions appropriately Exam: In respiratory distress on bipap. Responds to commands, easily arousable. CVS: RRR Lungs: Transmitted bipap sounds, no wheezing Abd; nt/nd Ext: no edema Internal Medicine: Result - Labs CBC & Chem 7: 10/10/17 07:00 10/10/17 07:00 Labs: Short CBC 10/10/17 Range/Units 07:00 WBC 12.8 H (4.3-11.1) K/mcL Hgb 10.9 L (11.5-15.4) g/dL Hct 37.3 (35.3-44.9) % Plt Count 376 (140-400) K/mcL Neutrophils # 9.8 H (1.6-8.9) K/mcL BMP 10/10/17 07:00 Sodium 143 Potassium 3.1 L Chloride 97 L Carbon Dioxide 42 H* BUN 13 Creatinine 0.93 Glucose 115 H Calcium 8.7 - ABG Interpretation ABG results: ABG ABG pH 7.36 pH Units (7.32-7.45) 10/06/17 10:42 ABG pCO2 69 mmHg (35-45) H 10/06/17 10:42 ABG pO2 96 mmHg (85-104) 10/06/17 10:42 ABG O2 Saturation 97 % (95-98) 10/06/17 10:42 Consult Discharge Plan - Plan Referrals: Colleen Smith, REPAIRER HELPER [Primary Care Provider] -
[2017-10-10] MEDS: MethylPREDNISolone 40 MG/ML VIAL IVP SCH (23:11)
[2017-10-11 01:14] LABS: ABG Base Excess 16 mEq/L (-2 to 3); ABG HCO3 44 mEq/L (21-27); ABG Oxygen Saturation 93 % (95-98); ABG PCO2 68 mmHg (35-45); ABG PH 7.42 pH Units (7.32-7.45); ABG PO2 69 mmHg (85-104); ABG TCO2 46 mEq/L (20-26); Blood Gas PEEP 6 cm H2O
[2017-10-11] MEDS: Ipratropium/Albuterol Neb 3 ML IH SCH ×4 (05:21→22:43)
[2017-10-11] MEDS: *HR* Heparin 5,000 UNIT/ML VIAL SQ SCH ×2 (05:36→17:11)
[2017-10-11 05:50] LABS: BUN/Creatinine Ratio 14 (6-26); Blood Urea Nitrogen 11 mg/dL (8-23); Calcium 8.4 mg/dL (8.6-10.3); Carbon Dioxide 38 mEq/L (23-29); Chloride 97 mEq/L (98-107); Glucose 138 mg/dL (70-105); Osmolality,Calculated 292 (280-300); Potassium 3.7 mEq/L (3.5-5.1); Sodium 140 mEq/L (136-145); eGFR For African Americans > 60 (> 60); eGFR For Non-African Americans > 60 (> 60)
[2017-10-11 05:51] LABS: Basophils % 0.2 %; Eosinophils % 0.2 %; Hematocrit 36.8 % (35.3-44.9); Hemoglobin 11.1 g/dL (11.5-15.4); Immature Granulocytes % 1.3 % (0-4); Lymphocytes # 0.9 K/mcL (0.6-4.6); Lymphocytes % 8.3 %; Mean Corpuscular HGB Conc 30.2 g/dL (31.6-35.5); Mean Corpuscular Hemoglobin 27.9 pg (28.0-33.3); Mean Corpuscular Volume 92.5 fL (83.0-100.0); Mean Platelet Volume 9.1 fL (9.4-12.4); Monocytes # 0.2 K/mcL (0.0-1.3); Monocytes % 1.6 %; Neutrophils # 9.1 K/mcL (1.6-8.9); Platelet Count 320 K/mcL (140-400); Red Blood Count 3.98 M/mcL (3.82-4.97); Red Cell Distribution Width 14.2 % (11.5-14.5); Segmented Neutrophils % 88.4 %
[2017-10-11] MEDS: Vancomycin 2,000 MG in D5% in Water 500 ML IVPB SCH (06:00)
[2017-10-11] MEDS: Levofloxacin 750 MG/150 ML 750 MG/150 ML BAG IVPB SCH (08:07)
[2017-10-11] MEDS: traZODone 50 MG TABLET PO SCH ×2 (08:08→20:22)
[2017-10-11] MEDS: Fluticasone Propionate Nasal 50 MCG/SPRAY BOTTLE NS SCH (08:08)
[2017-10-11] MEDS: MethylPREDNISolone 40 MG/ML VIAL IVP SCH ×3 (08:09→23:29)
[2017-10-11 09:46] LABS: Mycoplasma pneumoniae IgG 0.27 U/L (<=0.09)
[2017-10-11 14:41] LABS: Procalcitonin 0.07 ng/mL (<=0.10)
[2017-10-11] MEDS: Vancomycin 1,750 MG in D5% in Water 500 ML IVPB SCH (19:27)
[2017-10-11] MEDS: *HR* HYDROcodone/Acet 5/325 mg TABLET PO PRN (20:52)
[2017-10-11] MEDS: Budesonide/Formoterol 160/4.5 MDI IH SCH (22:41)
--- NOTE | 2017-10-12 02:20 | Internal Med Progress Note ---
Date of Encounter: 10/11/17 Time of Encounter: 12:18 - Assessment and plan (1) Acute and chronic respiratory failure with hypoxia Current Visit: No Status: Acute Assessment and plan: Patient presented to [facility] from shelter for dyspnea and confusion. Several days ago she was at the shelter and she finished Tamiflu for influenza, positive for Flu B. She has also been having some problems with cough and low oxygen. Patient's that some underlying dementia and confusion but apparently the confusion is getting worse according to the nursing staff she is not complaining of any pain. Chest x-ray in [facility] showed right retrocardiac opacity, in this setting likely PNA. Has COPD exacerbation as well. Not likely heart failure, patient BNP 80s. WBC elevated at 15k. CTA chest done here negative for PE. CTA did show bilateral lower lobe airspace consolidation, likely reflecting miltifocal pneumonia or aspiration. Swallow eval 10/07; no signs of aspiration. Has MRSA in sputum with pneumonia in the past. Her son notes that at shelter she is on 2-4 L o2 and saturates 90-92 %. Discussed with the POA (son) and the patient about her goals of care. She has refused Bipap today when she clinically warranted it. She is unsure if she would like intubation/CPR in case of respiratory failure. Her son states she has dementia and when she is in illness like this she becomes more confused as she is at this moment. He believes she would be okay with bipap, however patient continues to decline use of bipap. She is not compliant with nasal cannula oxygen. Overall patient prognosis is guarded, she is not willing to use bipap at times of distress and she is slow to recover from acute on chronic respiratory failure. Had increas in white count, possibly from respiratory distress. Steroids were being tapered, so not likely the reason for increase of white count to 13. If white count continues to increase, will change coverage. - Continue Vancomycin, Levaquin. Await urine antigen studies, procalcitonin, sputum cultures. - Prednisone changed to Solu-medrol - Titrate O2 sats to 90-92% O2. (2) Pneumonia Current Visit: No Status: Acute Assessment and plan: Seen on CTA of chest, showing likely multifocal pneumonia. Has history of MRSA pneumonia which was isolated in sputum culture at that time. Continue to monitor patient as she is easily desaturating and goes into dyspneic episodes. Overall she is showing some improvement but she is a high risk patient based on multiple comorbidities. Qualifiers: Pneumonia type: due to Pneumococcus Laterality: right Lung location: unspecified part of lung Qualified Code(s): J13 - Pneumonia due to Streptococcus pneumoniae (3) Acute exacerbation of chronic obstructive airways disease Current Visit: No Status: Acute (4) Dementia Current Visit: Yes Status: Acute Assessment and plan: As reported by her son, and does appear confused at baseline. She is unsure why she is admitted even though she has episodes of respiratory distress. POSera is son and medical decision making has been taking place with him on her goals of care. Qualifiers: Dementia type: unspecified type Dementia behavioral disturbance: without behavioral disturbance Qualified Code(s): F03.90 - Unspecified dementia without behavioral disturbance (5) Heart failure with preserved left ventricular function (HFpEF) Current Visit: Yes Status: Acute Assessment and plan: Not in acute exacerbation (6) COPD (chronic obstructive pulmonary disease) with emphysema Current Visit: No Status: Acute Qualifiers: Emphysema type: unilateral Qualified Code(s): J43.0 - Unilateral pulmonary emphysema [MacLeod's syndrome] (7) HTN (hypertension) Current Visit: Yes Status: Acute Qualifiers: Hypertension type: essential hypertension Qualified Code(s): I10 - Essential (primary) hypertension - Subjective Interval history: Patient admitted as transfer from [facility] for acute on chonric respiratory failure. She's on 2-4L O2 at shelter. Pt was diagnosed Flu on 09/26/17 and just finished 5 day course of tamiflu. She was found SOB and desaturation. She has history of dementia and patient was confused on admission. She had episodes of dyspnea requiring oxygen to go to 7L NC, she usually uses 2-4 L at shelter (nasal cannula). She was still labored in breathing. Eventually was able to wean oxygen to 4 L which she can be at shelter at times. 10/07 patient still requiring 7 L O2 (Mask), gets dyspneic but cannot remember exactly why she is here. She states she wants to go home. When patient takes her O2 off she instantly desaturates to 80s. 10/08: Documented on 7 L mask. However nursing reports that she was on 4L earlier. I observed patient eating lunch and she is desaturating to 83%with mask partially off she currently denies CP,SOB, fevers.chills. 10/09 had dyspnea in paroxysms and only accepted O2 mask. Has some edema noted in extremities. which improved with Lasix. 10/10 patient more somnolent and did agree to bipap. Patient feels clinically better but not cooperative with respiratory therapist. She desaturates and becomes SOB when taking off mask. - Constitutional Vitals: Temp Pulse Resp BP Pulse Ox 98.9 F 97 18 115/63 92 10/11/17 18:51 10/11/17 18:51 10/11/17 22:43 10/11/17 18:51 10/11/17 22:43 General appearance: Present: A&O X 1, morbidly obese, answers questions appropriately Exam: More cooperative today CVS: RRR Lungs: improved air exchange of bases, no rales, course breath sounds, faint end expiratory wheezing Ext: trace bipedal edema Internal Medicine: Result - Labs CBC & Chem 7: 10/11/17 05:18 10/11/17 05:18 Labs: Short CBC 10/11/17 Range/Units 05:18 WBC 10.3 (4.3-11.1) K/mcL Hgb 11.1 L (11.5-15.4) g/dL Hct 36.8 (35.3-44.9) % Plt Count 320 (140-400) K/mcL Neutrophils # 9.1 H (1.6-8.9) K/mcL BMP 10/11/17 05:18 Sodium 140 Potassium 3.7 Chloride 97 L Carbon Dioxide 38 H BUN 11 Creatinine 0.77 Glucose 138 H Calcium 8.4 L - ABG Interpretation ABG results: ABG ABG pH 7.42 pH Units (7.32-7.45) 10/11/17 01:11 ABG pCO2 68 mmHg (35-45) H 10/11/17 01:11 ABG pO2 69 mmHg (85-104) L 10/11/17 01:11 ABG O2 Saturation 93 % (95-98) L 10/11/17 01:11 Consult Discharge Plan - Plan Referrals: Colleen Smith, [facility] [Primary Care Provider] -
[2017-10-12] MEDS: Ipratropium/Albuterol Neb 3 ML IH SCH ×4 (04:16→22:19)
[2017-10-12] MEDS: Vancomycin 2,000 MG in D5% in Water 500 ML IVPB SCH (05:34)
[2017-10-12] MEDS: *HR* HYDROcodone/Acet 5/325 mg TABLET PO PRN ×2 (05:38→20:17)
[2017-10-12] MEDS: *HR* Heparin 5,000 UNIT/ML VIAL SQ SCH ×2 (05:39→16:46)
[2017-10-12] MEDS ORDERED: Aminoglycoside Consult 1 EACH MC ONE (07:41)
[2017-10-12 07:47] LABS: BUN/Creatinine Ratio 18 (6-26); Blood Urea Nitrogen 13 mg/dL (8-23); Calcium 8.6 mg/dL (8.6-10.3); Carbon Dioxide 35 mEq/L (23-29); Chloride 98 mEq/L (98-107); Glucose 188 mg/dL (70-105); Osmolality,Calculated 293 (280-300); Potassium 3.5 mEq/L (3.5-5.1); Sodium 139 mEq/L (136-145); eGFR For African Americans > 60 (> 60); eGFR For Non-African Americans > 60 (> 60)
[2017-10-12 08:07] LABS: Basophils % 0.2 %; Eosinophils % 0.2 %; Hemoglobin 10.9 g/dL (11.5-15.4); Immature Granulocytes % 1.4 % (0-4); Lymphocytes # 0.4 K/mcL (0.6-4.6); Lymphocytes % 4.1 %; Mean Corpuscular HGB Conc 30.3 g/dL (31.6-35.5); Mean Corpuscular Hemoglobin 27.7 pg (28.0-33.3); Mean Corpuscular Volume 91.4 fL (83.0-100.0); Mean Platelet Volume 9.7 fL (9.4-12.4); Monocytes # 0.3 K/mcL (0.0-1.3); Monocytes % 2.7 %; Neutrophils # 9.9 K/mcL (1.6-8.9); Platelet Count 317 K/mcL (140-400); Red Blood Count 3.94 M/mcL (3.82-4.97); Segmented Neutrophils % 91.4 %
[2017-10-12] MEDS: Levofloxacin 750 MG/150 ML 750 MG/150 ML BAG IVPB SCH (09:04)
[2017-10-12] MEDS: MethylPREDNISolone 40 MG/ML VIAL IVP SCH (09:04)
[2017-10-12] MEDS: traZODone 50 MG TABLET PO SCH (09:04)
[2017-10-12] MEDS: Fluticasone Propionate Nasal 50 MCG/SPRAY BOTTLE NS SCH (09:05)
[2017-10-12] MEDS: Budesonide/Formoterol 160/4.5 MDI IH SCH ×2 (10:42→22:20)
[2017-10-12] MEDS: *HR* LORazepam 0.5 MG TABLET PO PRN ×2 (12:46→20:17)
--- NOTE | 2017-10-12 16:41 | Internal Med Progress Note ---
Date of Encounter: 10/12/17 Time of Encounter: 14:00 - Assessment and plan (1) Acute exacerbation of chronic obstructive airways disease Current Visit: No Status: Acute Assessment and plan: improving started tapering steroids cont Duoneb + O2 (2) Respiratory failure with hypoxia and hypercapnia Current Visit: No Status: Acute Assessment and plan: She does have both hypxoic and hypercapneic resp failure she would get benefit with BiPAP at bed time but pt refused to use it will talked to pt's family about this Qualifiers: Chronicity: acute on chronic Qualified Code(s): J96.21 - Acute and chronic respiratory failure with hypoxia; J96.22 - Acute and chronic respiratory failure with hypercapnia (3) Pneumonia Current Visit: No Status: Acute Assessment and plan: Seen on CTA of chest, showing likely multifocal pneumonia. Improving switched to Po Levaquin d/c Vanco Qualifiers: Pneumonia type: due to Pneumococcus Laterality: right Lung location: unspecified part of lung Qualified Code(s): J13 - Pneumonia due to Streptococcus pneumoniae (4) HTN (hypertension) Current Visit: Yes Status: Acute Assessment and plan: stable Qualifiers: Hypertension type: essential hypertension Qualified Code(s): I10 - Essential (primary) hypertension (5) Dementia Current Visit: Yes Status: Acute Assessment and plan: stable Qualifiers: Dementia type: unspecified type Dementia behavioral disturbance: without behavioral disturbance Qualified Code(s): F03.90 - Unspecified dementia without behavioral disturbance (6) Heart failure with preserved left ventricular function (HFpEF) Current Visit: Yes Status: Acute Assessment and plan: Not in acute exacerbation however with her acute hypoxic resp fialure.. will try a couple of IV Lasix doses and see so started her on IV Lasix - Subjective Interval history: Ms. Kurtz is a 76 year old female with Hx of COPD, chronic hypoxic resp failure and HTN sent to [place] ER for hypoxia and worsening SOB. Pt was admitted here for acute hypoxic resp failure and hypercapnea. Pt was admitted in the hospital and started her on empirical abx and IV steroids. She does need BiPAP but pt kept on refusing BiPAP. Currently she is on 7 Lit O2 through Oxy mask. She is alert, awake and Oriented to self only. Denied any CP. - Constitutional Vitals: Temp Pulse Resp BP Pulse Ox 98.1 F 61 16 145/78 93 10/12/17 11:52 10/12/17 11:52 10/12/17 15:43 10/12/17 11:52 10/12/17 15:43 General appearance: Present: A&O X 1, morbidly obese, answers questions appropriately - Head Head exam: Present: atraumatic, normal inspection - Neck Neck exam general surgery: Present: supple - Respiratory Respiratory exam: Present: decreased breath sounds, wheezes (moderate). Absent : rales, respiratory distress, rhonchi - Cardiovascular Cardiovascular exam: Present: RRR, +S1, +S2. Absent: tachycardia - GI/Abdominal GI/Abdominal exam: Present: normal bowel sounds, soft. Absent: rebound, rigid, tenderness - Extremities Exam Extremities exam: Absent: calf tenderness, pedal edema, tenderness - Back Exam Back exam: Absent: CVA tenderness (L), CVA tenderness (R) - Neurological Exam Neurological exam: Present: alert, oriented X3 - Psychiatric Psychiatric exam: Present: normal affect, normal mood Internal Medicine: Result - Labs CBC & Chem 7: 10/12/17 06:58 10/12/17 06:58 Labs: Short CBC 10/12/17 Range/Units 06:58 WBC 10.8 (4.3-11.1) K/mcL Hgb 10.9 L (11.5-15.4) g/dL Hct 36.0 (35.3-44.9) % Plt Count 317 (140-400) K/mcL Neutrophils # 9.9 H (1.6-8.9) K/mcL BMP 10/12/17 06:58 Sodium 139 Potassium 3.5 Chloride 98 Carbon Dioxide 35 H BUN 13 Creatinine 0.71 Glucose 188 H Calcium 8.6 - ABG Interpretation ABG results: ABG ABG pH 7.42 pH Units (7.32-7.45) 10/11/17 01:11 ABG pCO2 68 mmHg (35-45) H 10/11/17 01:11 ABG pO2 69 mmHg (85-104) L 10/11/17 01:11 ABG O2 Saturation 93 % (95-98) L 10/11/17 01:11 Consult Discharge Plan - Plan Referrals: Colleen Smith, [facility] [Primary Care Provider] -
[2017-10-12] MEDS: Furosemide 40 MG/4 ML VIAL IVP SCH ×2 (16:46→20:17)
[2017-10-12] MEDS: Famotidine 20 MG TABLET PO SCH ×2 (16:46→20:17)
[2017-10-12] MEDS: Gabapentin 300 MG CAPSULE PO SCH (16:46)
[2017-10-12] MEDS ORDERED: traZODone 50 MG TABLET PO SCH (21:00)
[2017-10-12] MEDS ORDERED: Gabapentin 300 MG CAPSULE PO SCH (21:00)
[2017-10-13] MEDS: Ipratropium/Albuterol Neb 3 ML IH SCH ×3 (04:04→16:03)
[2017-10-13] MEDS: *HR* Heparin 5,000 UNIT/ML VIAL SQ SCH ×2 (06:16→18:21)
[2017-10-13 07:09] LABS: Basophils % 0.2 %; Eosinophils % 0.2 %; Hematocrit 38.3 % (35.3-44.9); Hemoglobin 11.4 g/dL (11.5-15.4); Immature Granulocytes % 1.3 % (0-4); Lymphocytes # 1.2 K/mcL (0.6-4.6); Lymphocytes % 10.7 %; Mean Corpuscular HGB Conc 29.8 g/dL (31.6-35.5); Mean Corpuscular Hemoglobin 27.6 pg (28.0-33.3); Mean Corpuscular Volume 92.7 fL (83.0-100.0); Mean Platelet Volume 9.1 fL (9.4-12.4); Monocytes # 1.2 K/mcL (0.0-1.3); Monocytes % 10.6 %; Neutrophils # 8.6 K/mcL (1.6-8.9); Platelet Count 318 K/mcL (140-400); Red Blood Count 4.13 M/mcL (3.82-4.97); Red Cell Distribution Width 14.4 % (11.5-14.5)
[2017-10-13 07:29] LABS: BUN/Creatinine Ratio 21 (6-26); Blood Urea Nitrogen 18 mg/dL (8-23); Calcium 8.7 mg/dL (8.6-10.3); Carbon Dioxide 39 mEq/L (23-29); Chloride 99 mEq/L (98-107); Glucose 108 mg/dL (70-105); Osmolality,Calculated 302 (280-300); Potassium 2.9 mEq/L (3.5-5.1); Sodium 145 mEq/L (136-145); eGFR For African Americans > 60 (> 60); eGFR For Non-African Americans > 60 (> 60)
[2017-10-13] MEDS ORDERED: Cholecalciferol (D-3) 1,000 UNIT TABLET PO SCH (09:00)
[2017-10-13] MEDS ORDERED: (Memantine Hcl [Namenda Xr] 14 MG) PO SCH (09:00)
[2017-10-13] MEDS ORDERED: Multivit/Ca/Min/Fe/FA 1 TAB TABLET PO SCH (09:00)
[2017-10-13] MEDS ORDERED: levoFLOXacin 500 MG TABLET PO SCH (09:00)
[2017-10-13] MEDS ORDERED: Aspirin Enteric Coated 81 MG Tablet PO SCH (09:00)
[2017-10-13] MEDS ORDERED: MethylPREDNISolone 40 MG/ML VIAL IVP SCH (09:00)
[2017-10-13] MEDS ORDERED: Cyanocobalamin (B-12) 1,000 MCG TABLET PO SCH (09:00)
[2017-10-13] MEDS: Famotidine 20 MG TABLET PO SCH (09:36)
[2017-10-13] MEDS: *HR* HYDROcodone/Acet 5/325 mg TABLET PO PRN ×2 (09:36→15:50)
[2017-10-13] MEDS: *HR* LORazepam 0.5 MG TABLET PO PRN ×2 (09:37→18:22)
[2017-10-13] MEDS: Gabapentin 300 MG CAPSULE PO SCH ×2 (09:37→14:17)
[2017-10-13] MEDS: Fluticasone Propionate Nasal 50 MCG/SPRAY BOTTLE NS SCH (09:37)
[2017-10-13] MEDS: Budesonide/Formoterol 160/4.5 MDI IH SCH (10:37)
[2017-10-13] MEDS ORDERED: Furosemide 40 MG/4 ML VIAL IVP ONE (14:41)
--- NOTE | 2017-10-13 15:00 | Discharge Summary ---
Date of Encounter: 10/13/17 Time of Encounter: 14:59 - Discharge Diagnosis (1) Acute exacerbation of chronic obstructive airways disease Priority: Primary Status: Acute (2) Respiratory failure with hypoxia and hypercapnia Priority: Primary Status: Acute Qualifiers: Chronicity: acute on chronic Qualified Code(s): J96.21 - Acute and chronic respiratory failure with hypoxia; J96.22 - Acute and chronic respiratory failure with hypercapnia (3) Pneumonia Priority: Primary Status: Acute Qualifiers: Pneumonia type: due to Pneumococcus Laterality: right Lung location: unspecified part of lung Qualified Code(s): J13 - Pneumonia due to Streptococcus pneumoniae (4) HTN (hypertension) Priority: Secondary Status: Acute Qualifiers: Hypertension type: essential hypertension Qualified Code(s): I10 - Essential (primary) hypertension (5) Dementia Priority: Secondary Status: Acute Qualifiers: Dementia type: unspecified type Dementia behavioral disturbance: without behavioral disturbance Qualified Code(s): F03.90 - Unspecified dementia without behavioral disturbance (6) Heart failure with preserved left ventricular function (HFpEF) Priority: Secondary Status: Acute - Discharge Medications Prescriptions: HYDROcodone/Acet 5/325 mg [[place] 5-325 mg] 1 tab PO Q6H PRN #15 tablet PRN Reason: Pain LORazepam [Ativan] 0.5 mg PO BID PRN #15 tablet PRN Reason: Anxiety predniSONE [PredniSONE] 40 mg PO DAILY #10 tablet Home Medications: Aspirin [Adult Low Dose Aspirin EC] 81 mg PO DAILY 01/07/16 [History] Potassium Chloride [K-Tab ER] 20 meq PO BID 01/07/16 [History] Gabapentin [Neurontin] 300 mg PO BID 08/10/16 [History] Ranitidine HCl [Zantac] 150 mg PO BID 08/10/16 [History] Escitalopram [Lexapro] 10 mg PO DAILY 07/27/17 [History] Loratadine [Allergy Relief] 10 mg PO DAILY 07/27/17 [History] Losartan Potassium [Cozaar] 25 mg PO DAILY 07/27/17 [History] Omeprazole [PriLOSEC] 20 mg PO DAILY 07/27/17 [History] Quetiapine Fumarate [Seroquel] 50 mg PO BID 07/27/17 [History] Gabapentin [Neurontin] 600 mg PO HS 08/02/17 [History] Ipratropium/Albuterol Sulfate [Combivent Respimat Inhal [place]] 4 gm IH QID PRN 08/02/17 [History] Metoprolol [Lopressor] 12.5 mg PO BID 08/02/17 [History] traZODone [TraZODone] 75 mg PO HS 08/02/17 [History] Buspirone HCl [Buspar] 15 mg PO BID 10/05/17 [History] Cholecalciferol (Vitamin D3) [Vitamin D3] 50,000 unit PO QWEEK 10/05/17 [History ] Cyanocobalamin (Vitamin B-12) [Vitamin B-12] 1,000 mcg PO DAILY 10/05/17 [ History] Fluticasone Propionate [Flovent Diskus] 50 mcg IH DAILY 10/05/17 [History] Fluticasone/Vilanterol [Breo Ellipta 100-25 Mcg INH] 1 each IH DAILY 10/05/17 [ History] Ipratropium/Albuterol Neb [Duoneb] 3 ml IH Q6HR 10/05/17 [History] Melatonin/Pyridoxine HCl (B6) [Melatonin 3 mg Tablet] 1 each PO HS 10/05/17 [ History] Memantine HCl [Namenda Xr] 14 mg PO DAILY 10/05/17 [History] Atorvastatin [Lipitor] 10 mg PO HS 10/06/17 [History] Magnesium Hydroxide [Milk of Magnesia] 30 ml PO AD 10/06/17 [History] Multivitamin [One Daily Essential] 1 tab PO DAILY 10/06/17 [History] Saline Nasal [place] [[place] Nasal [place]] 1 spr NS AD 10/06/17 [History] Furosemide [Lasix] 40 mg PO BID #0 10/13/17 [Rx] HYDROcodone/Acet 5/325 mg [[place] 5-325 mg] 1 tab PO Q6H PRN #15 tablet 10/13/17 [Rx] LORazepam [Ativan] 0.5 mg PO BID PRN #15 tablet 10/13/17 [Rx] levoFLOXacin [Levaquin] 500 mg PO DAILY #1 tablet 10/13/17 [Rx] predniSONE [PredniSONE] 40 mg PO DAILY #10 tablet 10/13/17 [Rx] Allergies/Adverse Reactions: 3 Allergy/AdvReac Type Severity Reaction Status Date / Time Banana Allergy See Verified 08/02/17 12:24 Comments epinephrine [From Adrenalin] Allergy Swelling Verified 08/02/17 12:24 of Lip/Tongue/Throat grass pollen Allergy See Verified 08/02/17 12:24 Comments Penicillins Allergy Swelling Verified 08/02/17 12:24 of Lip/Tongue/Throat Date of admission: 10/05/17 23:37 Primary care physician: Colleen Smith CNP Consults: 10/05/17 23:39 Consult to Occupational Therapy [CONS] Routine Comment: Evaluate, develop and implement POC Reason for Consult: Weakness Consult to Physical Therapy [CONS] Routine Comment: Evaluate, develop and implement POC Reason for Consult: weakness 10/06/17 16:22 Consult to Speech Therapy [CONS] Routine Comment: Evaluate, develop and implement POC Reason for Consult: possible aspiration Call Completed: No - Patient Status Disposition: Transfer SNF Condition: Fair Overall status at discharge: patient is back to baseline - Discharge Instructions Follow Up With: Colleen Smith CNP [Primary Care Provider] - Renea Bowers MD [Partnered Physician] - Additional Instructions: Please use BiPAP at bed time - Diet and Activity Activity: wear oxygen at night (4 lit) Diet: low salt diet Hospital course: Ms. Kurtz is a 76 year old female with Hx of COPD, chronic hypoxic resp failure and HTN sent to [facility] for hypoxia and worsening SOB. Pt was admitted here for acute hypoxic resp failure and hypercapnea. Pt was admitted in the hospital and started her on empirical abx and IV steroids. She does need BiPAP but pt kept on refusing BiPAP. Pt's family does aware of it. Her symptoms started improving slowly. She is breathing comfortably on 4 lit o2 now at rest, which seems to be close to her baseline. She remained afebrile and her WBC trended down to normal. Pt would like to go back to snf. I did talk to pt's daughter and explained to her about current care, as well about the BiPAP. She did request to send BiPAP information to snf, her brother is going to see her tomorrow at snf, hopefully he may convince her to keep using BiPAP at bed time. Recommend to continue tapering PO steroids and 2 more days of PO Abx - Time Spent with Patient Total time spent providing and/or coordinating discharge services: Greater than 30 minutes (spent 35 minutes on this pt's discharge summary) - Constitutional Vitals: Temp Pulse Resp BP Pulse Ox 98.2 F 68 20 100/65 94 10/13/17 10:36 10/13/17 10:36 10/13/17 10:38 10/13/17 10:36 10/13/17 10:38 General appearance: Present: A&O X 2, morbidly obese, answers questions appropriately - Head Head exam: Present: atraumatic, normal inspection - Neck Neck exam general surgery: Present: supple - Respiratory Respiratory exam: Present: decreased breath sounds, wheezes (mild). Absent: respiratory distress, rhonchi - Cardiovascular Cardiovascular exam: Present: RRR, +S1, +S2. Absent: tachycardia - GI/Abdominal GI/Abdominal exam: Present: normal bowel sounds, soft. Absent: rebound, rigid, tenderness - Extremities Exam Extremities exam: Present: pedal edema (trace). Absent: calf tenderness, tenderness - Back Exam Back exam: Absent: CVA tenderness (L), CVA tenderness (R) - Psychiatric Psychiatric exam: Present: normal affect, normal mood - Skin Skin exam: Absent: rash
[2017-10-13 15:13] VITALS: BP 111/74
--- NOTE | 2017-10-13 18:55 | Physician Discharge Referral ---
ExtendedCare Referral Info Provider in Charge after Transfer: PCP Institutional Level of Care: Skilled - Diagnosis (1) Acute exacerbation of chronic obstructive airways disease Status: Acute - Transfer Medications Prescriptions: HYDROcodone/Acet 5/325 mg [Elwell 5-325 mg] 1 tab PO Q6H PRN #15 tablet PRN Reason: Pain LORazepam [Ativan] 0.5 mg PO BID PRN #15 tablet PRN Reason: Anxiety predniSONE [PredniSONE] 40 mg PO DAILY #10 tablet Home Medications: Aspirin [Adult Low Dose Aspirin EC] 81 mg PO DAILY 01/07/16 [History] Potassium Chloride [K-Tab ER] 20 meq PO BID 01/07/16 [History] Gabapentin [Neurontin] 300 mg PO BID 08/10/16 [History] Ranitidine HCl [Zantac] 150 mg PO BID 08/10/16 [History] Escitalopram [Lexapro] 10 mg PO DAILY 07/27/17 [History] Loratadine [Allergy Relief] 10 mg PO DAILY 07/27/17 [History] Losartan Potassium [Cozaar] 25 mg PO DAILY 07/27/17 [History] Omeprazole [PriLOSEC] 20 mg PO DAILY 07/27/17 [History] Quetiapine Fumarate [Seroquel] 50 mg PO BID 07/27/17 [History] Gabapentin [Neurontin] 600 mg PO HS 08/02/17 [History] Ipratropium/Albuterol Sulfate [Combivent Respimat Inhal [place]] 4 gm IH QID PRN 08/02/17 [History] Metoprolol [Lopressor] 12.5 mg PO BID 08/02/17 [History] traZODone [TraZODone] 75 mg PO HS 08/02/17 [History] Buspirone HCl [Buspar] 15 mg PO BID 10/05/17 [History] Cholecalciferol (Vitamin D3) [Vitamin D3] 50,000 unit PO QWEEK 10/05/17 [History ] Cyanocobalamin (Vitamin B-12) [Vitamin B-12] 1,000 mcg PO DAILY 10/05/17 [ History] Fluticasone Propionate [Flovent Diskus] 50 mcg IH DAILY 10/05/17 [History] Fluticasone/Vilanterol [Breo Ellipta 100-25 Mcg INH] 1 each IH DAILY 10/05/17 [ History] Ipratropium/Albuterol Neb [Duoneb] 3 ml IH Q6HR 10/05/17 [History] Melatonin/Pyridoxine HCl (B6) [Melatonin 3 mg Tablet] 1 each PO HS 10/05/17 [ History] Memantine HCl [Namenda Xr] 14 mg PO DAILY 10/05/17 [History] Atorvastatin [Lipitor] 10 mg PO HS 10/06/17 [History] Magnesium Hydroxide [Milk of Magnesia] 30 ml PO AD 10/06/17 [History] Multivitamin [One Daily Essential] 1 tab PO DAILY 10/06/17 [History] Saline Nasal [place] [[place] Nasal [place]] 1 spr NS AD 10/06/17 [History] Furosemide [Lasix] 40 mg PO BID #0 10/13/17 [Rx] HYDROcodone/Acet 5/325 mg [Elwell 5-325 mg] 1 tab PO Q6H PRN #15 tablet 10/13/17 [Rx] LORazepam [Ativan] 0.5 mg PO BID PRN #15 tablet 10/13/17 [Rx] levoFLOXacin [Levaquin] 500 mg PO DAILY #1 tablet 10/13/17 [Rx] predniSONE [PredniSONE] 40 mg PO DAILY #10 tablet 10/13/17 [Rx] Allergies/Adverse Reactions: 3 Allergy/AdvReac Type Severity Reaction Status Date / Time Banana Allergy See Verified 08/02/17 12:24 Comments epinephrine [From Adrenalin] Allergy Swelling Verified 08/02/17 12:24 of Lip/Tongue/Throat grass pollen Allergy See Verified 08/02/17 12:24 Comments Penicillins Allergy Swelling Verified 08/02/17 12:24 of Lip/Tongue/Throat - Respiratory Orders Smoking Cessation: Smoking cessation has been advised. For more information, call the [place] Tobacco Quit Line at 9-634-JBHO-NOW. - Advance Directives Code Status: Full Code - Diet Orders House Supplement per Dietary: (1) Acute exacerbation of chronic obstructive airways disease Priority: Primary Status: Acute (2) Respiratory failure with hypoxia and hypercapnia Priority: Primary Status: Acute Qualifiers: Chronicity: acute on chronic Qualified Code(s): J96.21 - Acute and chronic respiratory failure with hypoxia; J96.22 - Acute and chronic respiratory failure with hypercapnia (3) Pneumonia Priority: Primary Status: Acute Qualifiers: Pneumonia type: due to Pneumococcus Laterality: right Lung location: unspecified part of lung Qualified Code(s): J13 - Pneumonia due to Streptococcus pneumoniae (4) HTN (hypertension) Priority: Secondary Status: Acute Qualifiers: Hypertension type: essential hypertension Qualified Code(s): I10 - Essential (primary) hypertension (5) Dementia Priority: Secondary Status: Acute Qualifiers: Dementia type: unspecified type Dementia behavioral disturbance: without behavioral disturbance Qualified Code(s): F03.90 - Unspecified dementia without behavioral disturbance (6) Heart failure with preserved left ventricular function (HFpEF) Priority: Secondary Status: Acute - Discharge Medications Prescriptions: HYDROcodone/Acet 5/325 mg [[place]well 5-325 mg] 1 tab PO Q6H PRN #15 tablet PRN Reason: Pain LORazepam [Ativan] 0.5 mg PO BID PRN #15 tablet PRN Reason: Anxiety predniSONE [PredniSONE] 40 mg PO DAILY #10 tablet Home Medications: Aspirin [Adult Low Dose Aspirin EC] 81 mg PO DAILY 01/07/16 [History] Potassium Chloride [K-Tab ER] 20 meq PO BID 01/07/16 [History] Gabapentin [Neurontin] 300 mg PO BID 08/10/16 [History] Ranitidine HCl [Zantac] 150 mg PO BID 08/10/16 [History] Escitalopram [Lexapro] 10 mg PO DAILY 07/27/17 [History] Loratadine [Allergy Relief] 10 mg PO DAILY 07/27/17 [History] Losartan Potassium [Cozaar] 25 mg PO DAILY 07/27/17 [History] Omeprazole [PriLOSEC] 20 mg PO DAILY 07/27/17 [History] Quetiapine Fumarate [Seroquel] 50 mg PO BID 07/27/17 [History] Gabapentin [Neurontin] 600 mg PO HS 08/02/17 [History] Ipratropium/Albuterol Sulfate [Combivent Respimat Inhal [place]] 4 gm IH QID PRN 08/02/17 [History] Metoprolol [Lopressor] 12.5 mg PO BID 08/02/17 [History] traZODone [TraZODone] 75 mg PO HS 08/02/17 [History] Buspirone HCl [Buspar] 15 mg PO BID 10/05/17 [History] Cholecalciferol (Vitamin D3) [Vitamin D3] 50,000 unit PO QWEEK 10/05/17 [History ] Cyanocobalamin (Vitamin B-12) [Vitamin B-12] 1,000 mcg PO DAILY 10/05/17 [ History] Fluticasone Propionate [Flovent Diskus] 50 mcg IH DAILY 10/05/17 [History] Fluticasone/Vilanterol [Breo Ellipta 100-25 Mcg INH] 1 each IH DAILY 10/05/17 [ History] Ipratropium/Albuterol Neb [Duoneb] 3 ml IH Q6HR 10/05/17 [History] Melatonin/Pyridoxine HCl (B6) [Melatonin 3 mg Tablet] 1 each PO HS 10/05/17 [ History] Memantine HCl [Namenda Xr] 14 mg PO DAILY 10/05/17 [History] Atorvastatin [Lipitor] 10 mg PO HS 10/06/17 [History] Magnesium Hydroxide [Milk of Magnesia] 30 ml PO AD 10/06/17 [History] Multivitamin [One Daily Essential] 1 tab PO DAILY 10/06/17 [History] Saline Nasal [place] [[place] Nasal [place]] 1 spr NS AD 10/06/17 [History] Furosemide [Lasix] 40 mg PO BID #0 10/13/17 [Rx] HYDROcodone/Acet 5/325 mg [[place] 5-325 mg] 1 tab PO Q6H PRN #15 tablet 10/13/17 [Rx] LORazepam [Ativan] 0.5 mg PO BID PRN #15 tablet 10/13/17 [Rx] levoFLOXacin [Levaquin] 500 mg PO DAILY #1 tablet 10/13/17 [Rx] predniSONE [PredniSONE] 40 mg PO DAILY #10 tablet 10/13/17 [Rx] Allergies/Adverse Reactions: 3 Allergy/AdvReac Type Severity Reaction Status Date / Time Banana Allergy See Verified 08/02/17 12:24 Comments epinephrine [From Adrenalin] Allergy Swelling Verified 08/02/17 12:24 of Lip/Tongue/Throat grass pollen Allergy See Verified 08/02/17 12:24 Comments Penicillins Allergy Swelling Verified 08/02/17 12:24 of Lip/Tongue/Throat Date of admission: 10/05/17 23:37 Primary care physician: Colleen Smith CNP Consults: 10/05/17 23:39 Consult to Occupational Therapy [CONS] Routine Comment: Evaluate, develop and implement POC Reason for Consult: Weakness Consult to Physical Therapy [CONS] Routine Comment: Evaluate, develop and implement POC Reason for Consult: weakness 10/06/17 16:22 Consult to Speech Therapy [CONS] Routine Comment: Evaluate, develop and implement POC Reason for Consult: possible aspiration Call Completed: No - Patient Status Disposition: Transfer SNF Condition: Fair Overall status at discharge: patient is back to baseline - Discharge Instructions Follow Up With: Colleen Smith CNP [Primary Care Provider] - Renea Bowers MD [Partnered Physician] - Additional Instructions: Please use BiPAP at bed time CERTIFICATION: I certify that the transfer of the above named patient to an Extended Care Facility is necessary for the continuing treatment of the diagnosis listed. The above information is true and accurate reflection of patient's current condition. Confidential - Redisclosure prohibited without a patient's written consent.
== END 2017-10-13 20:09 | DRG 193 ==
LOC: 3ANU → SUATTDRO 23:37
PROVIDERS: ADMIT Hospitalist; ATTEND Family Medicine